=== PATIENT | male | born 1980 | race Caucasian/White ===

== ENCOUNTER 2017-01-10 14:52 | Emergency (ER) | payer MEDICAID ==
[~2017-01-10] VITALS: Ht 160 cm; Wt 89.0 kg
[~2017-01-10 14:52] MED LIST: NAPR-260 PO
[2017-01-10 14:56] VITALS: Ht 160 cm; Wt 89.0 kg
[2017-01-10] MEDS ORDERED: IBUPROFEN 600 MG TAB PO ONE (15:30)
--- NOTE | 2017-01-10 16:17 | RADRPT ---
PROCEDURE: XR Shoulder. CLINICAL INDICATION: Trauma, pain TECHNIQUE: Three views of the right shoulder are available for review. COMPARISON: None available FINDINGS: The osseous structures, articular spaces, and surrounding soft tissues of the right shoulder are int act. No acute fracture or dislocation is seen. No radiopaque foreign body is identified. The acrom ioclavicular joint is grossly unremarkable. The visualized portions of the right clavicle and upper right rib cage are equally unremarkable. IMPRESSION: 1. Unremarkable right shoulder x-ray series. 2. No acute fracture or dislocation is seen. RPTAT: HDWR .Merrick Hernandez MD, MD Date Time Electronically viewed and signed by .Merrick Hernandez MD, on 01/10/2017 16:17 .R/
[2017-01-10] MEDS ORDERED: IBUP-1542 PO (16:21)
--- NOTE | 2017-01-10 16:24 | ERD ---
ER Documentation Chief Complaint Date/Time DATE: 01/10/17 TIME: 16:22 Chief Complaint RIGHT SHOULDER PAIN HPI This 28-year-old male presents with right shoulder pain after playing racquetball yesterday. He denies any fall or significant injury. He denies restricted range of motion weakness. The pain initially is described as being in the right scapular area. Denies any headache, neck pain, chest pain shortness of breath. ROS All systems reviewed and are negative except as per history of present illness. Medications Home Meds Active Scripts Ibuprofen* (Motrin*) 600 Mg Tab, 600 MG PO Q6, #20 TAB Prov:BEATA DRIVER MD 01/10/17 Naproxen* (Naprosyn*) 500 Mg Tablet, 500 MG PO BID Y for PAIN AND/OR INFLAMMATION, #30 TAB Prov:CARMEN SABILLON PA-C 07/05/15 Allergies Allergies: Coded Allergies: No Known Allergy (Unverified , 07/05/15) PMhx/Soc Medical and Surgical Hx: pt denies Medical Hx, pt denies Surgical Hx History of Surgery: No Anesthesia Reaction: No Hx Neurological Disorder: No Hx Respiratory Disorders: No Hx Cardiac Disorders: No Hx Psychiatric Problems: No Hx Miscellaneous Medical Probl: No Hx Alcohol Use: Yes (OCCASSIONAL) Hx Substance Use: No Hx Tobacco Use: No Physical Exam Vitals Vital Signs Date Time Temp Pulse Resp B/P Pulse Ox O2 Delivery O2 Flow Rate FiO2 01/10/17 14:56 98.1 61 Physical Exam Const: [] Alert, [id number] per Head: Atraumatic Eyes: Normal Conjunctiva ENT: Normal External Ears, Nose and Mouth. Neck: Full range of motion..~ No meningismus. Resp: Clear to auscultation bilaterally Cardio: Regular rate and rhythm, no murmurs Abd: Soft, non tender, non distended. Normal bowel sounds Skin: No petechiae or rashes Back: No midline or flank tenderness Ext: No cyanosis, or edema. There is some tenderness in the right scapular area and right posterior shoulder capsule. Patient is no appreciable restricted range of motion weakness or tenderness neurologic deficit. There is no warmth or erythema or signs of ischemia. Neur: Awake and alert Psych: Normal Mood and Affect Results 24 hrs Current Medications Medications (Trade) Dose Ordered Sig/Cheryl Route PRN Reason Start Time Stop Time Status Last Admin Dose Admin Ibuprofen (Motrin) 600 mg ONCE ONCE PO 01/10/17 15:30 01/10/17 15:31 DC 01/10/17 15:20 Procedures/MDM X-ray right shoulder 3V Interpreted by me: Bones: No fracture Joints: No dislocation Foreign body: None. Impression have a normal right shoulder x-ray Patient presents with right shoulder pain after sports injury yesterday. There is no signs of fracture, dislocation, ischemia, tendon or neurologic deficit. Likely has a muscular skeletal strain. Treated with ibuprofen, instructions for stretching and massage instructed to follow with his PCP and possibly orthopedist for pain next week. Return sooner for fevers, redness, shortness breath, chest pain, new worsening symptoms. The patient was stable with no new complaints during the ER course. Clinically, there is no current evidence to suggest meningitis, sepsis, acute abdomen, pneumonia, acute coronary syndrome, pulmonary embolism, or any other emergent condition appearing to require further evaluation or hospitalization. The patient should certainly return for any new or worsening symptoms per the aftercare instructions. They should otherwise follow-up with her primary care doctor for reevaluation this week. Departure Diagnosis: Primary Impression: Shoulder injury Encounter type: initial encounter Laterality: right Qualified Code: S49.91XA - Shoulder injury, right, initial encounter Condition: Stable Patient Instructions: Shoulder Sprain Referrals: CIARA INTERIANO MD Additional Instructions: X-rays read as normal today. Recheck with primary doctor orthopedist for pain next week. Return sooner for fevers, redness, new worsening symptoms. BEATA DRIVER MD January 10, 2017 16:24
== END 2017-01-10 16:26 | disposition home or self-care (01) ==
LOC: FTE 14:52
DX: S49.91XA Unspecified injury of right shoulder and upper arm, initial encounter (principal); X50.9XXA Other and unspecified overexertion or strenuous movements or postures, initial encounter; Y92.9 Unspecified place or not applicable
CPT/HCPCS: 73030; Z7502; Z7610